=== PATIENT | male | born 1985 | race Caucasian/White ===

== ENCOUNTER 2019-09-05 17:48 | Emergency (ER) | payer SELFPAY ==
[2019-09-05 18:20] VITALS: BP 187/119
--- NOTE | 2019-09-05 18:37 | PHYS DOC ---
Adult General Chief Complaint Chief Complaint: BACK INJURY HPI HPI Patient is a 34 year old male with history of chronic back pain who presents to the ED today complaining of exacerbation of chronic back pain. Patient reports on Monday which is 5 days ago he slipped on ice fell on his right side and t wisted his back and it flared up his chronic back pain. He states he has not seen a doctor for 5 years because he has not had issues with his back. He rates the pain as mild to moderate, he states the pain is radiating to the left lower extremity with occasional numbness to the foot and part of the thigh. Patient denies any loss of bowel/bladder function. He reports he saw a chiropractor 3 times this week and he feels the pain has gotten worse after seeing the chiropractor. Review of Systems Review of Systems Constitutional: Denies fever or chills [] Eyes: Denies change in visual acuity, redness, or eye pain [] HENT: Denies nasal congestion or sore throat [] Respiratory: Denies cough or shortness of breath [] Cardiovascular: No additional information not addressed in HPI [] GI: Denies abdominal pain, nausea, vomiting, bloody stools or diarrhea [] : Denies dysuria or hematuria [] Musculoskeletal: Reports low back pain radiating to the left lower extremity Integument: Denies rash or skin lesions [] Neurologic: Denies headache, focal weakness or sensory changes [] All other systems were reviewed and found to be within normal limits, except as documented in this note. Allergies Allergies Allergies Coded Allergies Type Severity Reaction Last Updated Verified No Known Drug Allergies 09/05/19 No Physical Exam Physical Exam Constitutional: Well developed, well nourished, no acute distress, non-toxic appearance. [] HENT: Normocephalic, atraumatic, bilateral external ears normal, oropharynx moist, no oral exudates, nose normal. [] Eyes: PERRLA, EOMI, conjunctiva normal, no discharge. [] Neck: Normal range of motion, no tenderness, supple, no stridor. [] Cardiovascular:Heart rate regular rhythm, no murmur [] Lungs & Thorax: Bilateral breath sounds clear to auscultation [] Abdomen: Bowel sounds normal, soft, no tenderness, no masses, no pulsatile masses. [] Skin: Warm, dry, no erythema, no rash. [] Back: No tenderness, no CVA tenderness. [] Extremities: No tenderness, no cyanosis, no clubbing, ROM intact, no edema. [] Neurologic: Alert and oriented X 3, normal motor function, normal sensory function, no focal deficits noted. [] Psychologic: Affect normal, judgement normal, mood normal. [] Current Patient Data Vital Signs Vital Signs Date Time Temp Pulse Resp B/P (MAP) Pulse Ox O2 Delivery O2 Flow Rate FiO2 09/05/19 18:20 97.8 86 18 187/119 (141) 97 Room Air 97.8 EKG EKG [] Radiology/Procedures Radiology/Procedures []PROCEDURE: CT LUMBAR SPINE WO CONTRAST Exam: CT lumbar spine without contrast INDICATION: Fall, pain TECHNIQUE: Sequential axial images through the lumbar spine obtained without IV contrast. Sagittal and coronal reformatted images were reconstructed from the axial data and reviewed. Comparisons: None FINDINGS: Vertebral body heights and alignment are well-maintained. Fracture to the lumbar spine is identified. Mild degenerative disc disease at L4-L5 with a broad-based left paracentral disc bulge causing mild left-sided neural foraminal stenosis. There is likely abutment of the descending left L5 nerve. Visualized soft tissues are unremarkable.. IMPRESSION: Negative CT L-spine for acute traumatic injury. Spondylotic changes as described above. Exposure: One or more of the following in the visualized dose reduction techniques were utilized for this examination: 1. Automated exposure control 2. Adjustment of the MA and/or KV according to patient size 3. Use of iterative of reconstructive technique Electronically signed by: Ritika Urena MD (09/05/2019 6:55 PM) [facility] DICTATED and SIGNED BY: RITIKA URENA MD DATE: 09/05/191854 Course & Med Decision Making Course & Med Decision Making Pertinent Labs and Imaging studies reviewed. (See chart for details) This is a 34-year-old male patient who presents to the ED today with left low back pain radiating to the left lower extremity that began 5 days ago after he fell. Patient has history of chronic low back pain. He has no cauda equina syndrome symptoms. CT of the lumbar spine interpreted by radiologist as negative for any acute findings, patient was provided neurosurgeon for follow-up. Other supportive care measures and pain medications provided. Provided return precautions. Dragon Disclaimer Dragon Disclaimer This electronic medical record was generated, in whole or in part, using a voice recognition dictation system. Departure Departure Impression: Primary Impression: Back pain Additional Impressions: Fall from standing Sciatica, left side Disposition: 01 HOME, SELF-CARE Condition: STABLE Referrals: NO PCP (PCP) STALIN SARMIENTO MD follow up in 1-2 weeks Patient Instructions: Back Exercises, [id number], Back Pain, Adult, [id number], Sciatica, [id number] Additional Instructions: You were evaluated in the emergency room for low back pain radiating to the left lower extremity, your lumbar spine CT is negative for any acute findings. Please follow-up with the provided neurosurgeon in the next 1-2 weeks you can continue seeing the chiropractor. You can try using a heating pad to your back, you can do some of the exercises on your discharge paperwork. Scripts Hydrocodone/Apap 5-325 (NORCO 5-325 TABLET) 1 Each Tablet 1 TAB PO Q6HRS, #20 TAB Prov: JESSICA RICCI APRN 09/05/19 Naproxen (NAPROXEN) 500 Mg Tablet 1 TAB PO BID for pain, #20 TAB 0 Refills Prov: JESSICA RICCI APRN 09/05/19 Cyclobenzaprine Hcl (CYCLOBENZAPRINE HCL) 10 Mg Tablet 1 TAB PO TID, #30 TAB Prov: JESSICA RICCI APRN 09/05/19 Methylprednisolone (MEDROL) 4 Mg Tab.ds.pk 1 PKG PO UD, #1 PKG Prov: JESSICA RICCI APRN 09/05/19 Problem Qualifiers Primary Impression: Back pain Back pain location: low back pain Chronicity: acute Back pain laterality: left Sciatica presence: with sciatica Sciatica laterality: sciatica of left side Qualified Codes: M54.42 - Lumbago with sciatica, left side Additional Impressions: Fall from standing Encounter type: initial encounter Qualified Codes: W19.XXXA - Unspecified fall, initial encounter JESSICA RICCI APRN Sep 05, 2019 18:37
--- NOTE | 2019-09-05 18:58 | RAD ---
Exam: CT lumbar spine without contrast INDICATION: Fall, pain TECHNIQUE: Sequential axial images through the lumbar spine obtained without IV contrast. Sagittal and coronal reformatted images were reconstructed from the axial data and reviewed. Comparisons: None FINDINGS: Vertebral body heights and alignment are well-maintained. Fracture to the lumbar spine is identified. Mild degenerative disc disease at L4-L5 with a broad-based left paracentral disc bulge causing mild left-sided neural foraminal stenosis. There is likely abutment of the descending left L5 nerve. Visualized soft tissues are unremarkable.. IMPRESSION: Negative CT L-spine for acute traumatic injury. Spondylotic changes as described above. Exposure: One or more of the following in the visualized dose reduction techniques were utilized for this examination: 1. Automated exposure control 2. Adjustment of the MA and/or KV according to patient size 3. Use of iterative of reconstructive technique Electronically signed by: London Hernandez MD (09/05/2019 6:55 PM) [facility]
[2019-09-05] MEDS ORDERED: HYDR-3164 PO (19:07)
[2019-09-05] MEDS ORDERED: METH4TAB2 PO (19:07)
[2019-09-05] MEDS ORDERED: NAPR-514 PO (19:07)
[2019-09-05] MEDS ORDERED: CYCL10TA2 PO (19:07)
== END 2019-09-05 19:13 | disposition home or self-care (01) ==
LOC: ER 17:48
DX: M54.42 Lumbago with sciatica, left side (principal); G89.29 Other chronic pain; W00.0XXA Fall on same level due to ice and snow, initial encounter; Y93.89 Activity, other specified; Y92.89 Other specified places as the place of occurrence of the external cause; Y99.8 Other external cause status
CPT/HCPCS: 72131; 99284-25